=== PATIENT | female | born 1970 | race Caucasian/White ===

== ENCOUNTER → 2018-03-22 21:30 | Outpatient (REF) | payer OTHER, SELFPAY ==
[2018-03-22 21:53] LABS: HEMOLYSIS < 15 (0-50)
[2018-03-22 21:59] LABS: Alanine Aminotransferase 31 IU/L (9-52); Albumin 4.5 g/dL (3.5-5.0); Albumin Globulin Ratio 1.6 (1.0-2.8); Alkaline Phosphatase 66 U/L (38-126); Aspartate Aminotransferase 26 IU/L (14-36); Bilirubin Total 0.8 mg/dL (0.2-1.3); Blood Urea Nitrogen 12 mg/dL (7-17); Calcium 9.3 mg/dL (8.4-10.2); Carbon Dioxide 27 mmol/L (22-32); Chloride 103 mmol/L (98-107); Creatine Kinase 78 U/L (30-135); Estimated Glomerular Filt Rate > 60.0 mL/min (>60); Globulin 2.9 g/dL (1.7-4.1); Glucose 95 mg/dL (70-100); Magnesium 2.1 mg/dL (1.6-2.3); Potassium 4.6 mmol/L (3.4-5.1); Sodium 143 mmol/L (137-145); Total Protein 7.4 g/dL (6.3-8.2)
[2018-03-22 22:07] LABS: Add Manual Diff / Slide Review NO; Eosinophils Percent Auto 5.4 % (2-4); Hematocrit 40.8 % (36-46); Hemoglobin 13.6 g/dL (12.0-16.0); Mean Corpuscular HGB Conc 33.3 % (30-36); Mean Corpuscular Hemoglobin 33.2 PG (26-34); Mean Corpuscular Volume 99.5 fL (80-100); Monocytes Percent Auto 7.8 % (3-14); Neutrophils Absolute Auto 5500 /uL (3000-5900); Neutrophils Percent Auto 64.8 % (50-75); Platelet Count 284 X10^3/uL (150-400); White Blood Cell Count 8.5 X10^3/uL (4.5-11.0)
[2018-03-22 22:18] LABS: Iron 133 ug/dL (37-170)
[2018-03-22 23:27] LABS: Folate 10.3 ng/mL (2.76-20.0)
[2018-03-23 15:17] LABS: Free T3, Triiodothyronine Free 3.05 pg/mL (2.77-5.27); Free T4, Direct Thyroxine 1.06 ng/dL (0.78-2.19)
[2018-03-23 15:30] LABS: Thyroid Stimulating Hormone 1.73 uIU/mL (0.47-4.68)
[2018-03-24 14:41] LABS: EBV Virus IgM Ab < 36.00 U/mL (< 36.00); EVB Early IgG < 9.00 U/mL (< 9.00)
[2018-03-26 15:33] LABS: Anti Thyroglobulin Antibody < 1 IU/mL (< 2); Thyroid Peroxidase Antibodies 3 IU/mL (< 9)
[2018-03-26 16:35] LABS: Ceruloplasmin 28 mg/dL (18-53)
[2018-03-26 16:49] LABS: Triiodothyronine T3 Total 107 ng/dL (76-181)
[2018-03-26 17:49] LABS: C.albicans IgA 0.3; C.albicans IgG 1.7; C.albicans IgM 0.4 (<1.0)
== END ==
LOC: LAB 21:30
PROVIDERS: Visit Provider Naturopath
DX: F41.9 Anxiety disorder, unspecified (principal); R53.83 Other fatigue; F32.0 Major depressive disorder, single episode, mild
CPT/HCPCS: 80053; 82390; 82550; 82746; 83088; 83540; 83735; 84439; 84443; 84480; 84481; 85025; 86376; 86628; 86663; 86664; 86665; 86800